=== PATIENT | male | born 1995 | race Caucasian/White ===

== ENCOUNTER 2019-06-18 21:53 | Emergency (ER) | payer OTHER ==
[2019-06-18 22:37] VITALS: BP 166/99; PULSE 90; RESP 18; TEMP 99.1
[2019-06-18] MEDS ORDERED: DIPH,PERTUS(ACELL)TETVAC-LF 0.5 ML VIAL IM ONE (22:52)
--- NOTE | 2019-06-18 23:42 | CT ---
EXAM: CT Head Without Intravenous Contrast CLINICAL HISTORY: ITS.REASON CT Reason: Pain TECHNIQUE: Axial computed tomography images of the head/brain without intravenous contrast. This CT exam was performed using one or more of the following dose reduction techniques: automated exposure control, adjustment of the mA and/or kV according to patient size, and/or use of iterative reconstruction technique. COMPARISON: No relevant prior studies available. FINDINGS: Brain: No hemorrhage. No edema. Ventricles: Unremarkable. No ventriculomegaly. Bones/joints: No acute fracture. Soft tissues: Unremarkable. Sinuses: No fluid levels. Mastoid air cells: Unremarkable as visualized. No mastoid effusion. IMPRESSION: No acute intracranial findings
--- NOTE | 2019-06-18 23:46 | ED ---
General Adult HPI - General Chief complaint: Head Injury Stated complaint: [employer] Pipe fell on head Time Seen by Provider: 06/18/19 22:38 Source: patient, RN notes reviewed Mode of arrival: ambulatory Limitations: no limitations - History of Present Illness Initial comments: 24-year-old male presents to the emergency department for a chief complaint of head injury about one hour prior to arrival. Patient states a 3 inch piece of PVC piping fell from 20 feet onto his head. Patient was at work when this occurred. Patient denies losing consciousness. Denies blood thinner usage. However he does admit to headache. Denies any other injuries. Patient has no other complaints at this time including shortness of breath, chest pain, abdominal pain, nausea or vomiting, or visual changes. - Related Data Allergies Allergy/AdvReac Type Severity Reaction Status Date / Time No Known Allergies Allergy Verified 06/18/19 22:37 Review of Systems ROS Statement: Those systems with pertinent positive or pertinent negative responses have been documented in the HPI. ROS Other: All systems not noted in ROS Statement are negative. Past Medical History Past Medical History: No Reported History History of Any Multi-Drug Resistant Organisms: None Reported Past Surgical History: Tonsillectomy Past Psychological History: No Psychological Hx Reported Smoking Status: Never smoker Past Alcohol Use History: None Reported Past Drug Use History: None Reported General Exam Limitations: no limitations General appearance: alert, in no apparent distress Head exam: Absent: atraumatic (3 cm laceration noted to patient's vertex of head.) Eye exam: Present: normal appearance, PERRL, EOMI. Absent: scleral icterus, conjunctival injection, periorbital swelling ENT exam: Present: normal exam, normal oropharynx, mucous membranes moist, TM's normal bilaterally (Negative hemotympanum), normal external ear exam Neck exam: Present: normal inspection, full ROM. Absent: tenderness, meningismus, lymphadenopathy Respiratory exam: Present: normal lung sounds bilaterally. Absent: respiratory distress, wheezes, rales, rhonchi, stridor Cardiovascular Exam: Present: regular rate, normal rhythm, normal heart sounds. Absent: systolic murmur, diastolic murmur, rubs, gallop, clicks GI/Abdominal exam: Present: soft, normal bowel sounds. Absent: distended, tenderness, guarding, rebound, rigid Neurological exam: Present: alert, oriented X3, CN II-XII intact, normal gait, other (GCS 15) Psychiatric exam: Present: normal affect, normal mood Course Vital Signs 06/18/19 22:34 Temperature 99.1 F Pulse Rate 90 Respiratory 18 Rate Blood Pressure 166/99 O2 Sat by Pulse 97 Oximetry Procedures - Laceration Laceration #1 Consent Obtained: verbal consent Indication: laceration Site: scalp Size (cm): 3 Description: linear Depth: simple, single layer Type of Sutures: other ([place]) Number of Sutures: 3 Technique: simple, interrupted Patient Tolerated Procedure: well, no complications Medical Decision Making - Medical Decision Making 24-year-old male presents for headache injury after a 3 inch PVC pipe fell onto his head and caused an abrasion. No loss of consciousness. CT brain shows no acute intracranial findings. 3 cm laceration to vertex of scalp was cleaned with saline pressure irrigation. 3 mani were applied. Wound was well approximated. Discussed concussion precautions are discussed follow-up with primary care in 1-2 days. Discussed returning here if he had any worsening symptoms. Patient will return in 7-10 days for suture removal. Disposition Clinical Impression: Laceration of scalp, Head injury Disposition: HOME SELF-CARE Condition: Good Instructions (If sedation given, give patient instructions): Head Injury (ED), Laceration (ED), Staple Care (ED) Additional Instructions: Please take Tylenol for pain. Please return in 7-10 days for staple removal. Return earlier if you have any other worsening symptoms. Follow up with primary care otherwise. Is patient prescribed a controlled substance at d/c from ED?: No Referrals: Genaro Venegas MD [REFERRING] - 1-2 days
== END 2019-06-19 00:08 | disposition home or self-care (01) ==
LOC: EC 21:53
DX: S01.01XA Laceration without foreign body of scalp, initial encounter (principal); R40.2412 Glasgow coma scale score 13-15, at arrival to emergency department; Z23 Encounter for immunization; W20.8XXA Other cause of strike by thrown, projected or falling object, initial encounter; Y92.69 Other specified industrial and construction area as the place of occurrence of the external cause; Y99.0 Civilian activity done for income or pay
CPT/HCPCS: 12002; 70450; 90471; 90715; 99283

== ENCOUNTER 2022-03-27 20:16 | Emergency (ER) | payer OTHER ==
[2022-03-27 20:20] VITALS: BP 160/96; PULSE 77; RESP 20; TEMP 98.7
--- NOTE | 2022-03-27 20:55 | XR ---
Result: Clinical History: Pain/injury. Comparison: None available. Technique: Frontal and lateral views of the left tibia and fibula. Findings: The bone mineralization is appropriate for age. There is no acute fracture or dislocation. The visualized osseous structures are in anatomic alignme nt. The joint spaces are preserved. Impression: No acute osseous abnormality.
[2022-03-27] MEDS ORDERED: IBUPROFEN 600 MG TAB PO STA (22:38)
[2022-03-27] MEDS ORDERED: ACET/COD 300 MG/30 MG STARTER PACK 6 TAB BTL PO STA (22:38)
[2022-03-27] MEDS ORDERED: IBUPROFEN 600 MG STARTER PACK 4 TAB BTL PO STA (22:38)
[2022-03-27] MEDS ORDERED: Acetaminophen-Codeine 300-30mg TAB PO STA (22:38)
--- NOTE | 2022-03-27 22:39 | ED ---
Lower Extremity Injury HPI - General Chief Complaint: Extremity Injury, Lower Stated Complaint: L leg injury Time Seen by Provider: 03/27/22 22:22 Source: patient, RN notes reviewed, old records reviewed Mode of arrival: ambulatory Limitations: no limitations - History of Present Illness Initial Comments: This is a 26-year-old male to the emergency department for evaluation patient coming in for leg pain today. Patient had significant leg injury wall trying to run changes in appetite left-sided leg pain left lower leg injury. Patient otherwise has no new complaints, he was able to amply on that leg. Although it is painful. Complaint: leg injury, ankle injury -: hour(s) Injury: Ankle: Left Type of Injury: hyperextension Place: street/outdoors Severity: moderate Severity scale (1-10): 6 Improves With: nothing Worsens With: weight bearing Context: running Associated Symptoms: snap/pop sensation, swelling, tingling, ambulatory - Related Data Allergies Allergy/AdvReac Type Severity Reaction Status Date / Time No Known Allergies Allergy Verified 03/27/22 20:20 Review of Systems ROS Statement: Those systems with pertinent positive or pertinent negative responses have been documented in the HPI. ROS Other: All systems not noted in ROS Statement are negative. Past Medical History Past Medical History: No Reported History History of Any Multi-Drug Resistant Organisms: None Reported Past Surgical History: Tonsillectomy Past Psychological History: No Psychological Hx Reported Smoking Status: Never smoker Past Alcohol Use History: None Reported Past Drug Use History: Marijuana General Exam Limitations: no limitations General appearance: alert, in no apparent distress Head exam: Present: atraumatic, normocephalic, normal inspection Eye exam: Present: normal appearance, PERRL, EOMI. Absent: scleral icterus, conjunctival injection, periorbital swelling ENT exam: Present: normal exam, mucous membranes moist Neck exam: Present: normal inspection. Absent: tenderness, meningismus, lymp hadenopathy Respiratory exam: Present: normal lung sounds bilaterally. Absent: respiratory distress, wheezes, rales, rhonchi, stridor Cardiovascular Exam: Present: regular rate, normal rhythm, normal heart sounds. Absent: systolic murmur, diastolic murmur, rubs, gallop, clicks GI/Abdominal exam: Present: soft, normal bowel sounds. Absent: distended, tenderness, guarding, rebound, rigid Extremities exam: Present: normal inspection, full ROM, normal capillary refill. Absent: tenderness, pedal edema, joint swelling, calf tenderness Back exam: Present: normal inspection Neurological exam: Present: alert, oriented X3, CN II-XII intact Psychiatric exam: Present: normal affect, normal mood Skin exam: Present: warm, dry, intact, normal color. Absent: rash Course Vital Signs 03/27/22 20:18 Temperature 98.7 F Pulse Rate 77 Respiratory 20 Rate Blood Pressure 160/96 O2 Sat by Pulse 97 Oximetry - Reevaluation(s) Reevaluation #1: 03/27/22 Medical record is reviewed Patient symptoms are improved here in the ER Patient informed of results and questions answered Medical Decision Making - Medical Decision Making 26 male to the emergency department for evaluation of leg pain. X-rays negative patient can be discharged home - Radiology Data Radiology results: report reviewed (X-ray tib-fib negative for acute disease), image reviewed Disposition Clinical Impression: Left ankle sprain, Achilles tendon sprain Disposition: HOME SELF-CARE Condition: Good Instructions (If sedation given, give patient instructions): Ankle Sprain (ED) Is patient prescribed a controlled substance at d/c from ED?: No Referrals: None,Stated [Primary Care Provider] - 1-2 days
== END 2022-03-27 23:11 | disposition home or self-care (01) ==
LOC: EC 20:16
DX: S93.402A Sprain of unspecified ligament of left ankle, initial encounter (principal); S86.012A Strain of left Achilles tendon, initial encounter; W01.0XXA Fall on same level from slipping, tripping and stumbling without subsequent striking against object, initial encounter; Y93.02 Activity, running

== ENCOUNTER → 2023-11-24 | Outpatient (CLI) | payer BC | END | disposition home or self-care (01) | LOC: LABWHC1 08:15 | PROVIDERS: ATTEND Family Medicine | DX: R79.89 Other specified abnormal findings of blood chemistry (principal) | CPT/HCPCS: 36415; 84403 ==